=== PATIENT | male | born 1975 | race Caucasian/White ===

== ENCOUNTER 2016-04-29 09:10 | Emergency (ER) | payer BC ==
[~2016-04-29] VITALS: Ht 182.9 cm; Wt 102.3 kg
[2016-04-29 09:19] VITALS: BP 140/101
[2016-04-29] MEDS ORDERED: PERCOCET 5/31 TABLET PO (11:32)
[2016-04-29] MEDS ORDERED: MOTRIN800 MG PO (11:32)
== END 2016-04-29 11:49 | disposition home or self-care (01) ==
LOC: EME 09:10
PROC: 2W3QX1Z Immobilization of Right Lower Leg using Splint (ICD-10-PCS; principal; 2016-04-29)
DX: S82.451A Displaced comminuted fracture of shaft of right fibula, initial encounter for closed fracture (principal); W18.30XA Fall on same level, unspecified, initial encounter; Y93.64 Activity, baseball
CPT/HCPCS: 73610; 99281; 99284